=== PATIENT | female | born 1975 | race Caucasian/White ===

== ENCOUNTER 2017-01-02 05:44 | Day surgery (SDC) | payer OTHER ==
[2017-01-02] MEDS ORDERED: CHLORHEXIDINE GLUC HIBICLENS 118 ML BTL TP ONE (06:00)
[2017-01-02] MEDS ORDERED: ceFAZolin 2 GM/DEXTROSE 100 ML IV ONE (06:00)
[2017-01-02] MEDS ORDERED: LR 1,000 ML IV ONE (07:08)
[2017-01-02] MEDS ORDERED: BACITRACIN 50,000 UNITS/10 ML SYR IRR ONE (07:12)
[2017-01-02] MEDS ORDERED: BUPIVACAINE/EPI 0.25% 30 ML SDV ONE (07:12)
[2017-01-02] MEDS ORDERED: THROMBIN (RECOMBINANT) 5,000 UNIT VIAL TP ONE (07:13)
[2017-01-02] MEDS ORDERED: DEPO METHYLPREDNISOLONE 40 MG/ML SDV ONE (07:13)
[2017-01-02] MEDS ORDERED: MIDAZOLAM 2 MG/2 ML VIAL ONE (07:22)
[2017-01-02] MEDS ORDERED: LIDOCAINE 2% 100 MG/5 ML SYR IVP ONE (07:23)
[2017-01-02] MEDS ORDERED: PROPOFOL/EMULSION 500 MG/50 ML BOTTLE IV ONE (07:23)
[2017-01-02] MEDS ORDERED: ROCURONIUM 50 MG/5 ML VIAL ONE (07:23)
[2017-01-02] MEDS ORDERED: REMIFENTANIL HCL 1 MG VIAL ONE ×2 (07:23→07:24)
[2017-01-02] MEDS ORDERED: fentaNYL 100 MCG/2 ML INJ ONE ×2 (07:23→09:44)
[2017-01-02] MEDS ORDERED: PROPOFOL 200 MG/20 ML VIAL ONE (07:23)
[2017-01-02] MEDS ORDERED: DEXAMETHASONE 4 MG/ML VIAL ONE ×2 (08:01)
[2017-01-02] MEDS ORDERED: MEPERIDINE 25 MG/ML SYR ONE (09:35)
[2017-01-02] MEDS ORDERED: OXYCODONE/APAP 5/325 TAB ONE (09:45)
--- NOTE | 2017-01-02 10:44 | DX ---
Intraoperative Fluoroscopy of the Lumbosacral Junction Clinical History: 41-year-old female undergoing a lumbar microdiskectomy. Findings: Dr. Ryan Velazco use 4.9 seconds of fluoroscopy time with an exposure dose of 3.42 mGy, an d a single spot matrix intraoperative image was acquired at 8:16 a.m. identifying localizing probes p laced over the posterior elements at the lumbosacral junction. Impression: Intraoperative fluoroscopy of the lower lumbar spine.
--- NOTE | 2017-01-02 11:24 | GOP ---
[f rep st] OPERATIVE REPORT DATE OF OPERATION: 01/02/2017 SURGEON: Ryan Velazco MD PROMOTIONS COORDINATOR: Ash Gleason PA-C PREOPERATIVE DIAGNOSIS: Herniated nucleus pulposus right L5-S1. POSTOPERATIVE DIAGNOSIS: Herniated nucleus pulposus right L5-S1. PROCEDURE PERFORMED: Right L5-S1 microdiskectomy (06209), microscope, fluoroscopy. FINDINGS: ESTIMATED BLOOD LOSS: 10 cc. 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 MRI demonstrated severe right lateral recess stenosis due to a combination of right L5-S1 facet arthropathy, as well as a disk prolapse at L5-S1. There was crushed right S1 nerve root. I suggested a microdiskectomy and a right lateral recess decompression. The risk of recurrent disk herniation, nerve injury, continued symptoms, CSF leak, were discussed. She wanted to proceed despite these risks. DESCRIPTION OF PROCEDURE: The patient was taken to the operating room, placed in the supine position. General anesthesia was begun. She was flipped prone on the Yang frame. Care was taken to pad all points of contact. Her back was sterilely prepped and draped in the usual fashion. A 15 mm incision was made above the L5-S1 interspace. The subcutaneous tissue was dissected using Bovie cautery down through the fascia and a subperiosteal dissection was made down the right L5-S1 lamina. A self-retaining retractor was placed. A localizing x-ray was taken. The operating microscope was introduced. Under the scope we drilled right a L5-S1 hemilaminotomy with a minimal medial facetectomy. The superior articular process of the sacrum was arthritic and was protruding deeply into the lateral recess of the spinal canal. We opened the ligamentum flavum and decompressed the right S1 nerve root. There was significant compression by the medial aspect of the SAP of the sacrum. We then swept the nerve root medially and underneath the nerve there was significant prolapse of the L5-S1 disk, tenting the nerve up off the lumbar vertebral bodies. We swept the nerve root medially, cut a small window lateral to the nerve root, and then delivered subannular fragments through the window, decompressing the right S1 root. We did not radically remove the whole disk, we simply removed the fragments that were located within the prolapse of the anulus itself. We irrigated the disk space with antibiotic saline solution, placed some Depo-Medrol to the right S1 root, and then closed the incision in multiple layers using Vicryl sutures. A running PDS was placed in the skin itself. The patient was reversed from anesthesia, extubated, and transferred to the recovery room in stable condition. COMPLICATIONS: None. /[id number]/MODL MTDD
== END 2017-01-02 10:57 | disposition home or self-care (01) ==
LOC: F3N 05:44 → FSGY 05:44 → UNDOADMIN 05:44 → EDSTATUS 07:30 → FSGY 10:57
PROVIDERS: ATTEND Neurological Surgery
PROC: 01NR0ZZ Release Sacral Nerve, Open Approach (ICD-10-PCS; principal; 2017-01-02 07:26)
DX: M51.26 Other intervertebral disc displacement, lumbar region (principal); M54.16 Radiculopathy, lumbar region
CPT/HCPCS: J0690; J1020; J1100; J1200; J2001; J2250; J2704; J3010